=== PATIENT | male | born 2005 | race Caucasian/White ===

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

== ENCOUNTER 2023-06-18 18:18 | Emergency (ER) | payer SELFPAY ==
[2023-06-18] MEDS: Dexamethasone 4 MG/ML SDV IM ONE (19:57)
[2023-06-20] MEDS: Dexamethasone 4 MG/ML SDV ONE (08:17)
== END 2023-06-18 20:15 | disposition home or self-care (01) ==
LOC: LB.ED 18:18
DX: J02.8 Acute pharyngitis due to other specified organisms (principal); Z88.0 Allergy status to penicillin; Z88.2 Allergy status to sulfonamides
CPT/HCPCS: 87430; 96372; 99282; 99283; J1100